=== PATIENT | female | born 1995 | race Caucasian/White ===

== ENCOUNTER 2019-08-18 23:04 | Emergency (ER) | payer OTHER ==
[~2019-08-18] VITALS: Ht 170.2 cm; Wt 68.0 kg
[2019-08-18 23:10] VITALS: BP 132/52
[2019-08-18] MEDS ORDERED: POLY10DR EACHEYE (23:41)
--- NOTE | 2019-08-18 23:42 | PHYS DOC ---
Adult General Chief Complaint Chief Complaint: EYE PROBLEMS [facility] Patient is a 23 year old female, accompanied by her boyfriend, who presents to the emergency department with complaints of bilateral eye redness and itching, watering, and crusting that began yesterday. Patient denies use of any contacts or known chemical exposures. He states she just started working on [employer]. She denies being around anybody with similar symptoms. She denies any fever, cough, runny nose, sore throat, ear pain, abdominal pain, nausea, vomiting, diarrhea, dysuria, hematuria, low back pain, or rash. Patient denies any vision changes. She currently rates her pain a 5 out of 10 on pain scale and describes it as a burning sensation. All other ROS is neg unless otherwise noted in HPI. Review of Systems Review of Systems See Above Physical Exam Physical Exam See Above Constitutional: Well developed, well nourished, no acute distress, non-toxic appearance. [] HENT: Normocephalic, atraumatic, bilateral external ears normal, nose normal. [] Eyes: PERRLA, EOMI, conjunctiva injected bilat, no discharge. [] Neck: Normal range of motion, no stridor. [] Cardiovascular:Heart rate regular rhythm Lungs & Thorax: Bilateral breath sounds clear to auscultation, Respirations even and unlabored, no retractions, no respiratory distress [] Skin: Warm, dry, no erythema, no rash. [] Extremities: No cyanosis, ROM intact Neurologic: Alert and oriented X 3, no focal deficits noted. [] Psychologic: Affect normal, judgement normal, mood normal. [] EKG EKG [] Radiology/Procedures Radiology/Procedures [] Course & Med Decision Making Course & Med Decision Making Pertinent Labs and Imaging studies reviewed. (See chart for details) [] Dragon Disclaimer Dragon Disclaimer This electronic medical record was generated, in whole or in part, using a voice recognition dictation system. Departure Departure Impression: Primary Impression: Acute conjunctivitis of both eyes Disposition: 01 HOME, SELF-CARE Condition: STABLE Referrals: UNKNOWN PCP NAME (PCP) Patient Instructions: Conjunctivitis (Viral and Bacterial) Additional Instructions: Fill the prescription(s) and use as directed. Apply warm, moist washcloths to eyes needed for comfort. Recommend use of baby shampoo to wash eyelids. Follow- up with your primary care doctor in 1-2 days. Return to the emergency room if your symptoms worsen. Scripts Polymyxin B Sulf/Trimethoprim (POLYTRIM EYE DROPS) 10 Ml Drops 2 DROP EACHEYE Q6HRS for 5 Days, #10 ML 0 Refills Prov: VANESSA ESPINOSA APRN 08/18/19 Problem Qualifiers Primary Impression: Acute conjunctivitis of both eyes Acute conjunctivitis type: unspecified Qualified Codes: H10.33 - Unspecified acute conjunctivitis, bilateral VANESSA ESPINOSA [employer] Aug 18, 2019 23:42
== END 2019-08-18 23:59 | disposition home or self-care (01) ==
LOC: ER 23:04
DX: H10.33 Unspecified acute conjunctivitis, bilateral (principal)
CPT/HCPCS: 99283